=== PATIENT | male | born 1990 | race Caucasian/White ===

== ENCOUNTER 2020-04-02 16:13 | Emergency (ER) | payer SELFPAY ==
--- NOTE | 2020-04-02 16:26 | EDM.PDOC ---
ED HPI GENERAL MEDICAL PROBLEM - General Chief Complaint: General Stated Complaint: MEDICAL CLEARANCE Time Seen by Provider: 04/02/20 16:17 - History of Present Illness INITIAL COMMENTS - FREE TEXT/NARRATIVE: History of present illness Patient presents in the custody of law enforcement for a medical clearance he is a type I diabetic law enforcement is concerned because he does not have up-to -date insulin and he needs this before he can be incarcerated. Patient states he is been taking his medications as directed but they are and they will not let him use them he has no complaints feels fine no need to see the doctor other than to refill fresh prescriptions for his insulin.] Review of systems: As per history of present illness and below otherwise all systems reviewed and negative. Past medical history: As per history of present illness and as reviewed below otherwise noncontributory. Surgical history: As per history of present illness and as reviewed below otherwise noncontributory. Social history: No reported history of drug or alcohol abuse. Family history: As per history of present illness and as reviewed below otherwise noncontributory. Physical exam: HEENT: Atraumatic, normocephalic, pupils reactive, negative for conjunctival pallor or scleral icterus, mucous membranes moist, throat clear, neck supple, nontender, trachea midline. Lungs: Clear to auscultation, breath sounds equal bilaterally, chest nontender. Heart: S1S2, regular, negative for clicks, rubs, or JVD. Abdomen: Soft, nondistended, nontender. Negative for masses or hepatosplenomegaly. Negative for costovertebral tenderness. Pelvis: Stable nontender. Genitourinary: Deferred. Rectal: Deferred. Extremities: Atraumatic, negative for cords or calf pain. Neurovascular unremarkable. Neuro: Awake, alert, oriented. Cranial nerves II through XII unremarkable. Cerebellum unremarkable. Motor and sensory unremarkable throughout. Exam nonfocal. Diagnostics: [] Therapeutics: [] Impression: Type 1 diabetes [] Plan: Will home meds discharge medically cleared [] Definitive disposition and diagnosis as appropriate pending reevaluation and review of above. - Related Data Allergies Allergy/AdvReac Type Severity Reaction Status Date / Time No Known Allergies Allergy Verified 04/02/20 16:25 Home Meds: Home Meds Insulin Lispro Prot/Lispro [HumaLOG Mix 75-25] 1 dose INJECT ASDIRECTED #1 pen 04/02/20 [Rx] Insulin NPH Hum/Reg Insulin Hm [Novolin 70-30 Flexpen] 15 - 20 units INJECT ASDIRECTED #1 insuln.pen 04/02/20 [Rx] Past Medical History HEENT History: Reports: Impaired Vision, Other (See Below) Other HEENT History: wears glasses Endocrine/Metabolic History: Reports: Diabetes, Type I, Obesity/BMI 30+ Social & Family History - Family History Family Medical History: Noncontributory ED ROS GENERAL - Review of Systems Review Of Systems: See Below ED EXAM, GENERAL - Physical Exam Exam: See Below Departure - Departure Time of Disposition: 16:33 Disposition: Home, Self-Care 01 Condition: Good Clinical Impression: Diabetes mellitus Qualifiers: Diabetes mellitus type: type 1 - Discharge Information *PRESCRIPTION DRUG MONITORING PROGRAM REVIEWED*: Not Applicable *COPY OF PRESCRIPTION DRUG MONITORING REPORT IN PATIENT NINOSKA: Not Applicable Instructions: Insulin Treatment for Diabetes Mellitus Referrals: PCP,None [Primary Care Provider] - Additional Instructions: The following information is given to patients seen in the emergency department who are being discharged to home. This information is to outline your options for follow-up care. We provide all patients seen in our emergency department with a follow-up referral. The need for follow-up, as well as the timing and circumstances, are variable depending upon the specifics of your emergency department visit. If you don't have a primary care physician on staff, we will provide you with a referral. We always advise you to contact your personal physician following an emergency department visit to inform them of the circumstance of the visit and for follow-up with them and/or the need for any referrals to a consulting specialist. The emergency department will also refer you to a specialist when appropriate. This referral assures that you have the opportunity for follow-up care with a specialist. All of these measure are taken in an effort to provide you with optimal care, which includes your follow-up. Under all circumstances we always encourage you to contact your private physician who remains a resource for coordinating your care. When calling for follow-up care, please make the office aware that this follow-up is from your recent emergency room visit. If for any reason you are refused follow-up, please contact the [facility] Emergency Department at and asked to speak to the emergency department charge nurse. Caitlin Velez [facility] [address] [place] [id number] [id number]
== END 2020-04-02 16:44 | disposition home or self-care (01) ==
LOC: MW.ED 16:13
DX: E10.9 Type 1 diabetes mellitus without complications (principal); E66.9 Obesity, unspecified; Z68.37 Body mass index [BMI] 37.0-37.9, adult
CPT/HCPCS: 82962; 99282; 99285

== ENCOUNTER 2021-04-18 04:38 | Emergency (ER) | payer SELFPAY ==
[2021-04-18] MEDS ORDERED: Sodium Chloride 0.9% 1,000 ML IV ONE ×2 (04:44→05:42)
--- NOTE | 2021-04-18 04:48 | EDM.PDOC ---
ED HPI GENERAL MEDICAL PROBLEM - General Chief Complaint: Drug or Alcohol Abuse Stated Complaint: OVERDOSE Time Seen by Provider: 04/18/21 04:44 Source of Information: Reports: Patient History Limitations: Reports: No Limitations - History of Present Illness INITIAL COMMENTS - FREE TEXT/NARRATIVE: Patient is a 30-year-old male who was brought in by EMS and police for possible overdose. Patient states that he took about 1-2 oxycodone that may have been laced with fentanyl use not sure of it. Police were on scene first and he states that he was unresponsive and they did chest compressions for about 4 minutes. EMS arrived and gave him 2 doses of Narcan since then patient's been awake. Patient has some pain in his chest after the chest compressions but states that he feels better and knows that these oxycodones were for sure laced with something because he takes them all the time he only took 1 or 2 no more. Patient normally takes more than that. - Related Data Allergies Allergy/AdvReac Type Severity Reaction Status Date / Time No Known Allergies Allergy Verified 04/18/21 04:45 Home Meds: Home Meds Insulin Lispro Prot/Lispro [HumaLOG Mix 75-25] 1 dose INJECT ASDIRECTED #1 pen 04/02/20 [Rx] Insulin NPH Hum/Reg Insulin Hm [Novolin 70-30 Flexpen] 15 - 20 units INJECT ASDIRECTED #1 insuln.pen 04/02/20 [Rx] Past Medical History HEENT History: Reports: Impaired Vision, Other (See Below) Other HEENT History: wears glasses Cardiovascular History: Reports: None Respiratory History: Reports: None Gastrointestinal History: Reports: None Genitourinary History: Reports: None Musculoskeletal History: Reports: None Neurological History: Reports: None Psychiatric History: Reports: None Endocrine/Metabolic History: Reports: Diabetes, Type I, Obesity/BMI 30+ Hematologic History: Reports: None Immunologic History: Reports: None Oncologic (Cancer) History: Reports: None Dermatologic History: Reports: None - Infectious Disease History Infectious Disease History: Reports: None - Past Surgical History Head Surgeries/Procedures: Reports: None HEENT Surgical History: Reports: None Cardiovascular Surgical History: Reports: None Respiratory Surgical History: Reports: None GI Surgical History: Reports: None Male Surgical History: Reports: None Endocrine Surgical History: Reports: None Neurological Surgical History: Reports: None Musculoskeletal Surgical History: Reports: None Oncologic Surgical History: Reports: None Dermatological Surgical History: Reports: None Social & Family History - Family History Family Medical History: No Pertinent Family History - Caffeine Use Caffeine Use: Reports: None ED ROS GENERAL - Review of Systems Review Of Systems: See Below Constitutional: Reports: No Symptoms HEENT: Reports: No Symptoms Respiratory: Reports: No Symptoms Cardiovascular: Reports: No Symptoms Endocrine: Reports: No Symptoms GI/Abdominal: Reports: No Symptoms : Reports: No Symptoms Musculoskeletal: Reports: No Symptoms Skin: Reports: No Symptoms Neurological: Reports: No Symptoms Psychiatric: Reports: No Symptoms Hematologic/Lymphatic: Reports: No Symptoms Immunologic: Reports: No Symptoms ED EXAM, GENERAL - Physical Exam Exam: See Below Exam Limited By: Intoxication General Appearance: Alert, WD/WN, No Apparent Distress Eye Exam: Bilateral Eye: EOMI, PERRL Throat/Mouth: Normal Inspection Head: Atraumatic, Normocephalic Respiratory/Chest: No Respiratory Distress, Lungs Clear, Normal Breath Sounds Cardiovascular: Normal Peripheral Pulses, Regular Rate, Rhythm Peripheral Pulses: 2+: Radial (L), Radial (R) GI/Abdominal: Normal Bowel Sounds, Soft, Non-Tender Back Exam: Normal Inspection Extremities: Normal Inspection Neurological: Alert, Oriented, Normal Cognition Course - Vital Signs Last Recorded V/S: Last Vital Signs Temp 97.6 F 04/18/21 04:41 Pulse 97 04/18/21 05:45 Resp 12 04/18/21 05:45 BP 145/70 H 04/18/21 05:45 Pulse Ox 93 L 04/18/21 05:45 - Orders/Labs/Meds Orders: Active Orders 24 hr Category Date Time Status Dextrose 50% in Water Med 04/18/21 05:22 Active 50 ml IVPUSH ASDIRECTED PRN Glucagon,Human Recombinant [GlucaGen] Med 04/18/21 05:22 Active 1 mg IM ASDIRECTED PRN Sodium Chloride 0.9% [Normal Saline] 1,000 ml Med 04/18/21 05:42 Active IV .BOLUS Medication Orders Dextrose/Water (50% Dextrose In Water 50 Ml Syringe) 50 ml IVPUSH ASDIRECTED PRN PRN Reason: Hypoglycemia Glucagon (Glucagon,Human Recombinant 1 Mg Vial) 1 mg IM ASDIRECTED PRN PRN Reason: Hypoglycemia Sodium Chloride (Normal Saline) 1,000 mls @ 999 mls/hr IV .BOLUS ONE Stop: 04/18/21 06:42 Last Admin: 04/18/21 05:42 Dose: 999 mls/hr Documented by: IVAN Labs: Laboratory Tests 04/18/21 04/18/21 04/18/21 Range/Units 04:45 04:45 05:00 WBC 10.98 (4.0-11.0) K/uL RBC 4.69 (4.50-5.90) M/uL Hgb 15.1 (13.0-17.0) g/dL Hct 42.9 (38.0-50.0) % MCV 91.5 (80.0-98.0) fL MCH 32.2 H (27.0-32.0) pg MCHC 35.2 (31.0-37.0) g/dL RDW Std Deviation 42.4 (28.0-62.0) fl RDW Coeff of Cristian 13 (11.0-15.0) % Plt Count 278 (150-400) K/uL MPV 11.10 (7.40-12.00) fL Neut % (Auto) 70.7 (48.0-80.0) % Lymph % (Auto) 23.4 (16.0-40.0) % Coos % (Auto) 4.6 (0.0-15.0) % Eos % (Auto) 1.1 (0.0-7.0) % Baso % (Auto) 0.2 (0.0-1.5) % Neut # (Auto) 7.8 H (1.4-5.7) K/uL Lymph # (Auto) 2.6 H (0.6-2.4) K/uL Coos # (Auto) 0.5 (0.0-0.8) K/uL Eos # (Auto) 0.1 (0.0-0.7) K/uL Baso # (Auto) 0.0 (0.0-0.1) K/uL Nucleated RBC % 0.0 /100WBC Nucleated RBCs # 0 K/uL Sodium 139 (136-148) mmol/L Potassium 4.0 (3.5-5.1) mmol/L Chloride 98 (98-107) mmol/L Carbon Dioxide 27.7 (21.0-32.0) mmol/L BUN 12 (7.0-18.0) mg/dL Creatinine 1.3 (0.8-1.3) mg/dL Est Cr Clr Drug Dosing 92.03 mL/min Estimated GFR (MDRD) > 60.0 ml/min Glucose 508 H* (74-106) mg/dL Calcium 8.7 (8.5-10.1) mg/dL Total Bilirubin 0.5 (0.2-1.0) mg/dL AST 125 H (15-37) IU/L ALT 270 H (14-63) IU/L Alkaline Phosphatase 97 (46-116) U/L Total Protein 7.9 (6.4-8.2) g/dL Albumin 3.5 (3.4-5.0) g/dL Globulin 4.4 H (2.6-4.0) g/dL Albumin/Globulin Ratio 0.8 L (0.9-1.6) Lipase 89 (73-393) U/L Urine Opiates Screen NEGATIVE (NEGATIVE) Ur Oxycodone Screen NEGATIVE (NEGATIVE) Urine Methadone Screen NEGATIVE (NEGATIVE) Ur Barbiturates Screen NEGATIVE (NEGATIVE) Ur Phencyclidine Scrn NEGATIVE (NEGATIVE) Ur Amphetamine Screen NEGATIVE (NEGATIVE) U Methamphetamines Scrn NEGATIVE (NEGATIVE) U Benzodiazepines Scrn NEGATIVE (NEGATIVE) U Cocaine Metab Screen NEGATIVE (NEGATIVE) U Marijuana (THC) Screen POSITIVE (NEGATIVE) Ethyl Alcohol 106 mg/dL Meds: Medications Generic Name Dose Route Start Last Admin Trade Name Freq PRN Reason Stop Dose Admin Dextrose/Water 50 ml 04/18/21 05:22 50% Dextrose In Water 50 Ml Syringe IVPUSH ASDIRECTED PRN Hypoglycemia Glucagon 1 mg 04/18/21 05:22 Glucagon,Human Recombinant 1 Mg Vial IM ASDIRECTED PRN Hypoglycemia Sodium Chloride 1,000 mls @ 999 mls/hr 04/18/21 05:42 04/18/21 05:42 Normal Saline IV 04/18/21 06:42 999 mls/hr .BOLUS ONE Administration Discontinued Medications Generic Name Dose Route Start Last Admin Trade Name Freq PRN Reason Stop Dose Admin Sodium Chloride 1,000 mls @ 999 mls/hr 04/18/21 04:44 04/18/21 04:52 Normal Saline IV 04/18/21 05:44 999 mls/hr .BOLUS ONE Administration Insulin Human Regular 10 unit 04/18/21 05:22 04/18/21 05:34 Insulin Regular, Human 100 Units/Ml 10 Ml Vial SUBCUT 04/18/21 05:23 10 units ONETIME ONE Administration Protocol - Re-Assessments/Exams Free Text/Narrative Re-Assessment/Exam: 04/18/21 06:00 Patient has been observed in the ED up awake is walking around tolerating p.o. and looks well at baseline. Patient has family will come pick him up. Patient sugar was 500 symptomatic we did give patient 10 units of subcu insulin. Departure - Departure Time of Disposition: 06:00 Disposition: Home, Self-Care 01 Condition: Good Clinical Impression: Accidental drug overdose - Discharge Information *PRESCRIPTION DRUG MONITORING PROGRAM REVIEWED*: Not Applicable *COPY OF PRESCRIPTION DRUG MONITORING REPORT IN PATIENT NINOSKA: Not Applicable Instructions: Accidental Drug Poisoning, Adult Forms: ED Department Discharge Additional Instructions: The following information is given to patients seen in the emergency department who are being discharged to home. This information is to outline your options for follow-up care. We provide all patients seen in our emergency department with a follow-up referral. The need for follow-up, as well as the timing and circumstances, are variable depending upon the specifics of your emergency department visit. If you don't have a primary care physician on staff, we will provide you with a referral. We always advise you to contact your personal physician following an emergency department visit to inform them of the circumstance of the visit and for follow-up with them and/or the need for any referrals to a consulting specialist. The emergency department will also refer you to a specialist when appropriate. This referral assures that you have the opportunity for follow-up care with a specialist. All of these measure are taken in an effort to provide you with optimal care, which includes your follow-up. Under all circumstances we always encourage you to contact your private physician who remains a resource for coordinating your care. When calling for follow-up care, please make the office aware that this follow-up is from your recent emergency room visit. If for any reason you are refused follow-up, please contact the [facility] Emergency Department at and asked to speak to the emergency department charge nurse. Please follow up with your primary care physician. If you do not have a primary care physician, see below: [facility] [address] [place] [address] My [facility] [address] [place] [address] He was seen today for a accidental drug overdose. You are given Narcan by EMS and police also did CPR presently chest without you did have a pulse. At 1 point you were not breathing but the Narcan woke you up. You to be careful with taking drugs that may be laced with fentanyl. You have been stable here if you have any other concerns or symptom please return to the ED. Sepsis Event Note (ED) - Evaluation Sepsis Screening Result: No Definite Risk - Focused Exam Vital Signs: Vital Signs Temp Pulse Resp BP Pulse Ox 04/18/21 05:45 97 12 145/70 H 93 L 04/18/21 05:11 94 12 147/83 H 94 L 04/18/21 04:41 97.6 F 101 H 20 145/77 H 96 - My Orders Last 24 Hours: My Active Orders 04/18/21 05:22 Dextrose 50% in Water 50 ml IVPUSH ASDIRECTED PRN Glucagon,Human Recombinant [GlucaGen] 1 mg IM ASDIRECTED PRN 04/18/21 05:42 Sodium Chloride 0.9% [Normal Saline] 1,000 ml IV .BOLUS - Assessment/Plan Last 24 Hours: My Active Orders 04/18/21 05:22 Dextrose 50% in Water 50 ml IVPUSH ASDIRECTED PRN Glucagon,Human Recombinant [GlucaGen] 1 mg IM ASDIRECTED PRN 04/18/21 05:42 Sodium Chloride 0.9% [Normal Saline] 1,000 ml IV .BOLUS Plan: Patient is a 30-year-old male who presents today for overdose on oxycodone it was may be laced with fentanyl. Patient received Narcan from EMS but also had chest compressions by the police is unclear if he was pulseless at that time. Patient is awake now and has no complaints. Will observe patient and likely discharge.
[2021-04-18 05:07] LABS: BLOOD UREA NITROGEN,BUN 12 mg/dL (7.0-18.0); CARBON DIOXIDE,CO2 27.7 mmol/L (21.0-32.0); CHLORIDE,CL 98 mmol/L (98-107); LIPASE 89 U/L (73-393); SODIUM,NA 139 mmol/L (136-148)
[2021-04-18 05:21] LABS: GLUCOSE RANDOM 508 mg/dL (74-106)
[2021-04-18] MEDS ORDERED: Glucagon,Human Recombinant 1 MG Vial IM PRN (05:22)
[2021-04-18] MEDS ORDERED: Insulin Regular, Human 100 Units/ML 10 ML Vial SUBCUT ONE (05:22)
[2021-04-18] MEDS ORDERED: 50% Dextrose in Water 50 ML Syringe IVPUSH PRN (05:22)
[2021-04-18] MEDS ORDERED: Sodium Chloride 0.9% 500 ML IV SCH (05:45)
[2021-04-18] MEDS ORDERED: Ondansetron 4 MG/2 ML SDV ONE (06:24)
[2021-04-18] MEDS ORDERED: Ondansetron 4 MG/2 ML SDV IM ONE (06:24)
== END 2021-04-18 06:30 | disposition home or self-care (01) ==
LOC: MW.ED 04:38
DX: T40.2X1A Poisoning by other opioids, accidental (unintentional), initial encounter (principal); E10.9 Type 1 diabetes mellitus without complications; E66.9 Obesity, unspecified; Z68.30 Body mass index [BMI] 30.0-30.9, adult
CPT/HCPCS: 36415; 80053; 80305; 80307; 82947; 83690; 85025; 96372; 99284; J2405; J7030; 99283; J1815-GY

== ENCOUNTER 2025-04-07 08:37 | Emergency (ER) | payer SELFPAY | END 2025-04-07 08:46 | disposition left against medical advice (07) | LOC: MW.ED 08:37 | DX: Z53.21 Procedure and treatment not carried out due to patient leaving prior to being seen by health care provider (principal) ==